=== PATIENT | male | born 1930 | race Caucasian/White ===

== ENCOUNTER 2018-01-29 15:15 | Outpatient (CLI) | payer MEDICARE | END 2018-01-29 15:16 | disposition home or self-care (01) | LOC: LAB.F 15:15 | DX: G93.40 Encephalopathy, unspecified (principal); R56.9 Unspecified convulsions; R27.0 Ataxia, unspecified | CPT/HCPCS: 36415; 80185 ==

== ENCOUNTER 2018-04-27 11:27 | Outpatient (CLI) | payer MEDICARE | END 2018-04-27 11:28 | disposition EMS.NT | LOC: EMS 11:27 | PROVIDERS: ATTEND Surgery | DX: S51.012A Laceration without foreign body of left elbow, initial encounter (principal); Z72.89 Other problems related to lifestyle; W18.30XA Fall on same level, unspecified, initial encounter; Y92.008 Other place in unspecified non-institutional (private) residence as the place of occurrence of the external cause ==

== ENCOUNTER 2020-03-12 08:54 | Outpatient (CLI) | payer MEDICARE ==
[2020-03-12 15:30] LABS: BASOPHILS % (AUTO) 0.4 %; EOSINOPHILS # (AUTO) 0.1 10^3/uL (0.0-0.7); EOSINOPHILS % (AUTO) 1.3 %; LYMPHOCYTES # (AUTO) 2.4 10^3/uL (1.5-3.5); LYMPHOCYTES % (AUTO) 35.4 %; MEAN CORPUSCULAR HEMOGLOBIN 32.7 pg (27.0-31.0); MEAN CORPUSCULAR HGB CONC 33.3 g/dL (32.0-36.0); MEAN PLATELET VOLUME 10.2 fL (7.4-11.4); MONOCYTES # (AUTO) 0.6 10^3/uL (0.0-1.0); MONOCYTES % (AUTO) 8.6 %; NEUTROPHILS # (AUTO) 3.7 10^3/uL (1.5-6.6); PLT - PLATELET COUNT 209 10^3/uL (130-450); RED BLOOD COUNT 3.98 10^6/uL (4.70-6.10); WHITE BLOOD COUNT 6.9 x10^3/uL (4.8-10.8)
[2020-03-12 15:48] LABS: ALBUMIN 4.6 g/dL (3.2-5.5); ALBUMIN/GLOBULIN RATIO 1.9 (1.0-2.2); ALKALINE PHOSPHATASE 82 IU/L (42-121); ALT ALANINE AMINOTRANSFERASE 31 IU/L (10-60); AST ASPARTATE AMINOTRANSFERASE 27 IU/L (10-42); BILIRUBIN,TOTAL 0.3 mg/dL (0.2-1.0); BUN - BLOOD UREA NITROGEN 18 mg/dL (6-20); CARBON DIOXIDE - CO2 29 mmol/L (21-32); CHLORIDE 104 mmol/L (101-111); CHOL/HDL RATIO 3.6 (<5.0); CHOLESTEROL 207 mg/dL; CREATININE 0.7 mg/dL (0.6-1.2); GLUCOSE 103 mg/dL (70-100); HDL CHOLESTEROL 57 mg/dL; LDL CHOLESTEROL,CALCULATED 134 mg/dL; LDL/HDL RATIO 2.4 (<3.6); PHENYTOIN (DILANTIN) 8.6 ug/mL; SODIUM 138 mmol/L (135-145); VLDL CHOLESTEROL 16 mg/dL
[2020-03-12 15:56] LABS: THYROID STIMULATING HORMONE 4.83 uIU/mL (0.34-5.60)
== END 2020-03-12 08:55 | disposition home or self-care (01) ==
LOC: LAB.S 08:54
PROVIDERS: ATTEND Psychiatry & Neurology Neurology
DX: R56.9 Unspecified convulsions (principal)
CPT/HCPCS: 36415; 80053; 80061; 80185; 82607; 82746; 83721; 84443; 85025